=== PATIENT | female | born 1980 | race Caucasian/White ===

== ENCOUNTER 2023-07-17 00:09 | Emergency (ER) | payer OTHER ==
[~2023-07-17] VITALS: Ht 162.6 cm; Wt 86.4 kg
[2023-07-17] MEDS ORDERED: FLUO40CA PO (07:39)
[2023-07-17] MEDS ORDERED: ADDE20CA3 PO (07:39)
[2023-07-17] MEDS ORDERED: NEUR300C PO (07:39)
[2023-07-17] MEDS ORDERED: AMLO10TA PO (07:39)
[2023-07-17 07:45] VITALS: BP 119/66; TEMP 97.3; O2SAT 95
== END 2023-07-17 07:46 | disposition home or self-care (01) ==
LOC: M ED 00:09
DX: Z76.0 Encounter for issue of repeat prescription (principal); I10 Essential (primary) hypertension; J45.909 Unspecified asthma, uncomplicated; F41.9 Anxiety disorder, unspecified; F17.200 Nicotine dependence, unspecified, uncomplicated; F10.10 Alcohol abuse, uncomplicated; Z91.048 Other nonmedicinal substance allergy status; Z79.810 Long term (current) use of selective estrogen receptor modulators (SERMs); Z79.899 Other long term (current) drug therapy

== ENCOUNTER → 2024-05-31 | Outpatient (REF) ==
[~2024-05-31] MED LIST: ADDE20CA3 PO; AMLO10TA PO; FLUO40CA PO; NEUR300C PO
== END ==
LOC: M LAB 15:47
PROVIDERS: ATTEND Nurse Practitioner Adult Health
DX: Z00.00 Encounter for general adult medical examination without abnormal findings (principal)